=== PATIENT | female | born 1995 | race Two or more races ===

== ENCOUNTER 2022-01-25 05:48 | Emergency (ER) | payer OTHER ==
[~2022-01-25] VITALS: Ht 152.4 cm; Wt 95.3 kg
[2022-01-25] MEDS ORDERED: DICLOFENAC POTA50 MG PO (11:23)
[2022-01-25] MEDS ORDERED: CYCLOBENZAPRINE10 MG PO (11:23)
== END 2022-01-25 11:51 | disposition home or self-care (01) ==
LOC: ER 05:48
DX: M62.830 Muscle spasm of back (principal); X50.0XXA Overexertion from strenuous movement or load, initial encounter; Y93.89 Activity, other specified; Y92.59 Other trade areas as the place of occurrence of the external cause